=== PATIENT | male | born 1965 | race Caucasian/White ===

== ENCOUNTER 2017-08-25 11:43 | Emergency (ER) | payer BC ==
--- NOTE | 2017-08-25 12:36 | ERPHSYRPT ---
- History of Present Illness Time Seen by Provider: 08/25/17 12:29 Source: patient Exam Limitations: no limitations Patient Subjective Stated Complaint: fell this am while taking dog outside. injured left wrist. Triage Nursing Assessment: moderate swelling to left wrist noted. good radial pulse, hand warm and good cap refill. denies any other injury at this time. wrist elevated and cold pack in place. Physician History: The patient is a 51-year-old right-handed male who complains of slipping outside about one hour ago when he was taking his little dog out for a walk. He fell onto his outstretched left arm, hearing a crunching sound in his wrist, and now has wrist pain. The wrist is slightly deformed and swollen. He states it isn't painful unless he bumps it up against something. He did not hit his head nor lose consciousness. Occurred: just prior to arrival Reason for Fall: slipped, fell from standing pos Injuries/Pain Location: upper extremity (left wrist) Loss of Consciousness: no loss of consciousness Quality: sharpness Severity of Pain-Max: mild Severity of Pain-Current: mild Modifying Factors: Improves With: nothing Associated Symptoms (Fall): extremity injury Allergies/Adverse Reactions: No Known Drug Allergies Allergy (Verified 08/25/17 12:00) Hx Tetanus, Diphtheria Vaccination/Date Given: No Hx Influenza Vaccination/Date Given: No Hx Pneumococcal Vaccination/Date Given: No - Review of Systems Constitutional: No Fever, No Chills Eyes: No Symptoms Ears, Nose, & Throat: No Symptoms Respiratory: No Cough, No Dyspnea Cardiac: No Chest Pain, No Edema, No Syncope Abdominal/Gastrointestinal: No Abdominal Pain, No Nausea, No Vomiting, No Diarrhea Genitourinary Symptoms: No Dysuria Musculoskeletal: Fall, Injury, Joint Pain, Joint Swelling Skin: No Rash Neurological: No Dizziness, No Focal Weakness, No Sensory Changes Psychological: No Symptoms Endocrine: No Symptoms Hematologic/Lymphatic: No Symptoms Immunological/Allergic: No Symptoms All Other Systems: Reviewed and Negative - Past Medical History Pertinent Past Medical History: Yes Musculoskeletal History: Fractures Other Medical History: lower leg fracture - Past Surgical History Past Surgical History: Yes Other Surgical History: SINUS - Social History Smoking Status: Never smoker Exposure to second hand smoke: No Drug Use: none Patient Lives Alone: No - Nursing Vital Signs Nursing Vital Signs: Initial Vital Signs Temperature 97.7 F 08/25/17 11:47 Pulse Rate 86 08/25/17 11:47 Respiratory Rate 16 08/25/17 11:47 Blood Pressure 138/74 08/25/17 11:47 O2 Sat by Pulse Oximetry 97 08/25/17 11:47 Pain Scale Pain Intensity 2 - Brewster Coma Score Best Eye Response (Brewster): (4) open spontaneously Best Verbal Response (Zainab): (5) oriented Best Motor Response (Brewster): (6) obeys commands Zainab Total: 15 - Physical Exam General Appearance: no apparent distress, alert Head Injury: no evidence of injury Eye Exam: PERRL/EOMI ENT Exam: airway nml Neck Exam: normal inspection, No tenderness Respiratory/Chest Exam: normal breath sounds, No chest tenderness, No respiratory distress Cardiovascular Exam: normal heart sounds, regular rate/rhythm Gastrointestinal Exam: soft, No tenderness, No distention, No guarding, No ecchymosis Rectal Exam: not done Back Exam: normal inspection, No vertebral tenderness Extremity Exam: joint swelling, limited range of motion (left wrist), pain with movement, swelling, tenderness Neurologic Exam: alert, oriented x 3, cooperative, sensation nml, No motor deficits Skin Exam: normal color, warm, dry SpO2 Interpretation: normal SpO2: 97 Oxygen Delivery: Room Air - Radiology Exams Left Wrist X-ray Interpretation: Reviewed by me, Teleradiologist Report, Displaced Fracture (angulated distal radial fracture without articular extension. Per Dr Ospina.) Ordered Tests: Active Orders 24 hr Category Date Time Status Cold Application STAT Care 08/25/17 12:40 Active WRIST (MIN 3 VIEWS) Stat Exams 08/25/17 12:39 Completed Medication Summary Discontinued Medications Generic Name Dose Route Start Last Admin Trade Name Corinna PRN Reason Stop Dose Admin Ketorolac Tromethamine 60 mg 08/25/17 12:39 08/25/17 12:48 Toradol 30 Mg Injection IM 08/25/17 12:40 60 mg STAT ONE Administration Ketorolac Tromethamine Confirm 08/25/17 12:45 Toradol 30 Mg Injection Administered 08/25/17 12:46 Dose 60 mg .ROUTE .STK-MED ONE - Progress Progress: improved Counseled pt/family regarding: need for follow-up, rad results - Departure Time of Disposition: 14:28 Departure Disposition: Home Clinical Impression: Distal radius fracture, left Condition: Stable Critical Care Time: No Referrals: CASEY HEALY [Primary Care Provider] - Additional Instructions: You have a distal fracture of the left radius. You were placed in a splint temporarily. You were given Toradol 60 mg by IM in the ER. Follow up tomorrow at the [facility]. Take naproxen 500 mg every 12 hours as needed. Prescriptions: Naproxen 500 mg PO BID PRN #30 tablet.
[2017-08-25] MEDS ORDERED: TORAdol 30 mg Injection IM ONE (12:39)
[2017-08-25] MEDS ORDERED: TORAdol 30 mg Injection ONE (12:45)
--- NOTE | 2017-08-25 13:14 | XRAY ---
Indication: Pain following fall. Comparison: None 3 views of the left wrist demonstrates mildly angulated distal radial acute fracture with soft tissue swelling. No intra-articular extension. Old nonunited ulnar styloid tip fracture. No other bony, articular, or soft tissue abnormalities.
[2017-08-25 14:17] VITALS: BP 102/78; PULSE 66
[2017-08-25 14:25] VITALS: O2SAT 97
== END 2017-08-25 15:03 | disposition home or self-care (01) ==
LOC: ED 11:43
DX: S52.502A Unspecified fracture of the lower end of left radius, initial encounter for closed fracture (principal); W01.0XXA Fall on same level from slipping, tripping and stumbling without subsequent striking against object, initial encounter; Y93.K1 Activity, walking an animal
CPT/HCPCS: 73110; 96372; 99283; 99284; J1885; L3908